=== PATIENT | male | born 1950 | race Caucasian/White ===

== ENCOUNTER 2017-01-03 10:18 | Inpatient (IN) | payer OTHER, MEDICARE ==
[~2017-01-03] VITALS: Ht 172.7 cm; Wt 82.0 kg
[~2017-01-03 10:18] MED LIST: ASPI81 PO; ATEN1TAB74 PO; CHLO25 PO; COMBAER INH; FOLI1 PO; GUAI100S6 PO; LISI40TA PO; MAGN400 PO; MEDR4PAK3 PO; NORC10TA2 PO; PROT40TA PO; THERM PO; THIA100T PO; Z.0.OXYGENDME NC; ZITH250T PO
[2017-01-03 10:24] VITALS: BP 106/62; PULSE 68; RESP 16; TEMP 98.1; O2SAT 99
[2017-01-03 10:41] VITALS: BP 95/49; PULSE 68; RESP 24; TEMP 98; O2SAT 99
[2017-01-03] MEDS ORDERED: SODIUM CHLOR 0.9% 1000 ML INJ 1,000 ML IV SCH ×2 (10:46)
[2017-01-03] MEDS ORDERED: SODIUM CHLORIDE 0.9% FLUSH 5 ML FLUSH IV FLUSH PRN ×2 (11:00)
[2017-01-03 11:08] VITALS: PULSE 71; RESP 24; O2SAT 97
--- NOTE | 2017-01-03 11:10 | PD ---
HPI Chief Complaint: Abnormal Results Time Seen by Provider: 10:39 Travel History International Travel<30 days: No Contact w/Intl Traveler<30days: No Traveled to known affect area: No History of Present Illness HPI The patient is a 66-year-old male who presents to the emergency department via private vehicle from the [place] for low sodium. The patient is a 40 history of nausea, vomiting, generalized weakness. The patient does have a history of chronic alcohol use, normally drinks 5 Budweisers per day, however, over the last several days his only been drinking one beer per day secondary to fullness in the abdomen. He does complain of generalized weakness with nausea and vomiting. He also notes decreased appetite. He denies any history of lung masses, but does have a history of low sodium in the past, however, states he has never been hospitalized for low sodium. He denies any significant swelling to lower extremities. He denies any chest pain or shortness of breath. Symptoms are moderate, there are no current alleviating or exacerbating factors. PFSH Past Medical History Arthritis: Yes Autoimmune Disease: No Depression: No Cancer: No Congestive Heart Failure: No COPD: Yes Coronary Artery Disease: No Diabetes: No Diminished Hearing: Yes Endocrine: No Genitourinary: No Hypertension: Yes Immune Disorder: No Implanted Vascular Access Dvce: Yes Musculoskeletal: No Neurologic: No Psychiatric: No Reproductive: No Respiratory: Yes (emphysema) Tetanus Vaccination: > 5 Years Influenza Vaccination: No Past Surgical History Abdominal Surgery: Yes (HERNIA REPAIR) Body Medical Devices: MESH FOR HERNIA REPAIR Other Surgery: Yes Social History Alcohol Use: Yes (6 PACK OF BEER PER DAY) Tobacco Use: Yes (1 PPD, STATED HE QUIT 4 DAYS AGO) Substance Use: No Allergies-Medications (Allergen,Severity, Reaction): Coded Allergies: No Known Allergies (Verified Adverse Reaction, Unknown, 01/03/17) Reported Meds & Prescriptions Reported Meds & Active Scripts Active Reported Aspirin 81 Mg Tab 81 Mg PO DAILY Tenormin (Atenolol) 50 Mg Tab 50 Mg PO DAILY Prinivil 40 mg (Lisinopril) 40 Mg Tab 40 Mg PO DAILY Combivent (Albuterol/Ipratropium) 14.7 Gm Aer 2 Puff INH Q6HPRN FOR WHEEZING Review of Systems Except as stated in HPI: all other systems reviewed are Neg General / Constitutional: No: Fever Cardiovascular: No: Chest Pain or Discomfort Respiratory: No: Shortness of Breath Gastrointestinal: Positive: Nausea, Vomiting, No: Abdominal Pain Genitourinary: No: Dysuria Musculoskeletal: Positive: Weakness, No: Edema Neurologic: No: Dizziness Physical Exam Narrative GENERAL: Awake, alert, pleasant 66-year-old male who appears his stated age and is in no acute respiratory distress. SKIN: Focused skin assessment warm/dry. HEAD: Atraumatic. Normocephalic. EYES: Pupils equal and round. No scleral icterus. No injection or drainage. ENT: No nasal bleeding or discharge. Mucous membranes pink and moist. NECK: Trachea midline. No JVD. CARDIOVASCULAR: Regular rate and rhythm. No murmur appreciated. RESPIRATORY: No accessory muscle use. Clear to auscultation. Breath sounds equal bilaterally. GASTROINTESTINAL: Abdomen soft, non-tender, nondistended. MUSCULOSKELETAL: No obvious deformities. No clubbing. No cyanosis. No edema. NEUROLOGICAL: Awake and alert. No obvious cranial nerve deficits. Motor grossly within normal limits. Normal speech. Nonfocal. PSYCHIATRIC: Appropriate mood and affect; insight and judgment normal. Data Data Last Documented VS Vital Signs Date Time Temp Pulse Resp B/P (MAP) Pulse Ox O2 Delivery O2 Flow Rate FiO2 01/03/17 11:08 71 24 97 Room Air 01/03/17 10:41 98.0 Orders Orders Electrocardiogram (01/03/17 10:46) Complete Blood Count With Diff (01/03/17 10:46) Comprehensive Metabolic Panel (01/03/17 10:46) Creatine Kinase (Cpk) (01/03/17 10:46) Thyroid Stimulating Hormone (01/03/17 10:46) Urinalysis - C+S If Indicated (01/03/17 10:46) Chest, Single Ap (01/03/17 10:46) Blood Glucose (01/03/17 10:46) Ecg Monitoring (01/03/17 10:46) Iv Access Insert/Monitor (01/03/17 10:46) Oximetry (01/03/17 10:46) Sodium Chloride 0.9% Flush (Ns Flush) (01/03/17 11:00) Sodium Chlor 0.9% 1000 Ml Inj (Ns 1000 M (01/03/17 10:46) Alcohol (Ethanol) (01/03/17 10:46) Ct Thorax/ Chest W Iv Contrast (01/03/17 ) Labs Laboratory Tests Test 01/03/17 11:08 01/03/17 11:10 01/03/17 11:41 White Blood Count 15.0 TH/MM3 Red Blood Count 4.52 MIL/MM3 Hemoglobin 15.4 GM/DL Hematocrit 42.9 % Mean Corpuscular Volume 94.8 FL Mean Corpuscular Hemoglobin 34.0 PG Mean Corpuscular Hemoglobin Concent 35.8 % Red Cell Distribution Width 15.5 % Platelet Count 386 TH/MM3 Mean Platelet Volume 7.1 FL Neutrophils (%) (Auto) 74.3 % Lymphocytes (%) (Auto) 9.9 % Monocytes (%) (Auto) 11.6 % Eosinophils (%) (Auto) 3.4 % Basophils (%) (Auto) 0.8 % Neutrophils # (Auto) 11.2 TH/MM3 Lymphocytes # (Auto) 1.5 TH/MM3 Monocytes # (Auto) 1.7 TH/MM3 Eosinophils # (Auto) 0.5 TH/MM3 Basophils # (Auto) 0.1 TH/MM3 CBC Comment DIFF FINAL Differential Comment Urine Color YELLOW Urine Turbidity CLEAR Urine pH 5.5 Urine Specific [place] 1.011 Urine Protein NEG mg/dL Urine Glucose (UA) NEG mg/dL Urine Ketones NEG mg/dL Urine Occult Blood NEG Urine Nitrite NEG Urine Bilirubin NEG Urine Urobilinogen LESS THAN 2.0 MG/DL Urine Leukocyte Esterase NEG Urine RBC 1 /hpf Urine WBC 2 /hpf Urine Hyaline Casts 11 /lpf Microscopic Urinalysis Comment CULT NOT INDICATED Blood Urea Nitrogen 13 MG/DL Creatinine 1.28 MG/DL Random Glucose 113 MG/DL Total Protein 6.3 GM/DL Albumin 2.7 GM/DL Calcium Level 8.6 MG/DL Alkaline Phosphatase 103 U/L Aspartate Amino Transf (AST/SGOT) 39 U/L Alanine Aminotransferase (ALT/SGPT) 23 U/L Total Bilirubin 0.5 MG/DL Sodium Level 122 MEQ/L Potassium Level 6.0 MEQ/L Chloride Level 89 MEQ/L Carbon Dioxide Level 24.3 MEQ/L Anion Gap 9 MEQ/L Estimat Glomerular Filtration Rate 56 ML/MIN Total Creatine Kinase 59 U/L Thyroid Stimulating Hormone 3rd Gen 2.120 uIU/ML Ethyl Alcohol Level LESS THAN 3 MG/DL MDM Medical Decision Making Medical Screen Exam Complete: Yes Emergency Medical Condition: Yes Medical Record Reviewed: Yes Interpretation(s) Laboratory Tests Test 01/03/17 11:08 01/03/17 11:10 01/03/17 11:41 White Blood Count 15.0 TH/MM3 Red Blood Count 4.52 MIL/MM3 Hemoglobin 15.4 GM/DL Hematocrit 42.9 % Mean Corpuscular Volume 94.8 FL Mean Corpuscular Hemoglobin 34.0 PG Mean Corpuscular Hemoglobin Concent 35.8 % Red Cell Distribution Width 15.5 % Platelet Count 386 TH/MM3 Mean Platelet Volume 7.1 FL Neutrophils (%) (Auto) 74.3 % Lymphocytes (%) (Auto) 9.9 % Monocytes (%) (Auto) 11.6 % Eosinophils (%) (Auto) 3.4 % Basophils (%) (Auto) 0.8 % Neutrophils # (Auto) 11.2 TH/MM3 Lymphocytes # (Auto) 1.5 TH/MM3 Monocytes # (Auto) 1.7 TH/MM3 Eosinophils # (Auto) 0.5 TH/MM3 Basophils # (Auto) 0.1 TH/MM3 CBC Comment DIFF FINAL Differential Comment Urine Color YELLOW Urine Turbidity CLEAR Urine pH 5.5 Urine Specific [place] 1.011 Urine Protein NEG mg/dL Urine Glucose (UA) NEG mg/dL Urine Ketones NEG mg/dL Urine Occult Blood NEG Urine Nitrite NEG Urine Bilirubin NEG Urine Urobilinogen LESS THAN 2.0 MG/DL Urine Leukocyte Esterase NEG Urine RBC 1 /hpf Urine WBC 2 /hpf Urine Hyaline Casts 11 /lpf Microscopic Urinalysis Comment CULT NOT INDICATED Blood Urea Nitrogen 13 MG/DL Creatinine 1.28 MG/DL Random Glucose 113 MG/DL Total Protein 6.3 GM/DL Albumin 2.7 GM/DL Calcium Level 8.6 MG/DL Alkaline Phosphatase 103 U/L Aspartate Amino Transf (AST/SGOT) 39 U/L Alanine Aminotransferase (ALT/SGPT) 23 U/L Total Bilirubin 0.5 MG/DL Sodium Level 122 MEQ/L Potassium Level 6.0 MEQ/L Chloride Level 89 MEQ/L Carbon Dioxide Level 24.3 MEQ/L Anion Gap 9 MEQ/L Estimat Glomerular Filtration Rate 56 ML/MIN Total Creatine Kinase 59 U/L Thyroid Stimulating Hormone 3rd Gen 2.120 uIU/ML Ethyl Alcohol Level LESS THAN 3 MG/DL Differential Diagnosis Differential diagnoses includes hyponatremia, chronic alcohol abuse, dehydration , small cell carcinoma, electrolyte abnormality, dehydration. Narrative Course IV was established, labs are drawn and sent, and the patient was placed on cardiac telemetry monitoring and continuous pulse oximetry monitoring. EKG was ordered and interpreted. Sodium level was sent to lab. The patient was administered 1 L of IV fluids. Chest x-ray reveals a right lung mass versus cavitary lesion, CT of the thorax with IV contrast was ordered. The sodium is low 122. Potassium is high 6.0, however, there is slight hemolysis. Chest x- ray reveals a right lung mass, unsure if this is a small cell carcinoma. The patient will be admitted to the medical service. The on-call medical team was paged for admission. Physician Communication Physician Communication The on-call medical service was paged for admission. Diagnosis Primary Impression: Hyponatremia Additional Impressions: Chest mass Hyperkalemia Condition: Stable Odell Luque MD Jan 03, 2017 11:10
[2017-01-03 11:18] LABS: AUTOMATED NEUTROPHIL # 11.2 TH/MM3 (1.8-7.7); BASOPHIL # 0.1 TH/MM3 (0-0.2); BASOPHIL % 0.8 % (0.0-2.0); EOSINOPHIL # 0.5 TH/MM3 (0-0.4); EOSINOPHIL % 3.4 % (0.0-4.0); HEMATOCRIT 42.9 % (39.0-51.0); HEMOGLOBIN 15.4 GM/DL (13.0-17.0); LYMPH % 9.9 % (9.0-44.0); LYMPHOCYTE # 1.5 TH/MM3 (1.0-4.8); MEAN CELL VOLUME 94.8 FL (80.0-100.0); MEAN CORPUSCULAR HGB CONC 35.8 % (32.0-36.0); MEAN PLATELET VOLUME 7.1 FL (7.0-11.0); MONO % 11.6 % (0.0-8.0); MONOCYTE # 1.7 TH/MM3 (0-0.9); NEUT % 74.3 % (16.0-70.0); PLATELET COUNT 386 TH/MM3 (150-450); RED BLOOD COUNT 4.52 MIL/MM3 (4.50-5.90); RED CELL DISTRIBUTION WIDTH 15.5 % (11.6-17.2)
[2017-01-03 11:43] LABS: BILIRUBIN, URINE NEG (NEG); BLOOD, URINE NEG (NEG); GLUCOSE,URINE NEG (NEG); HYALINE CAST, URINE 11 /lpf (RARE); KETONE, URINE NEG (NEG); NITRITE,URINE NEG (NEG); PH, URINE 5.5 (5.0-8.5); URINE COLOR YELLOW (YELLW/STRAW); URINE LEUKOCYTE ESTERASE NEG (NEG)
--- NOTE | 2017-01-03 11:49 | RADRPT ---
EXAM DATE/TIME: 01/03/2017 11:15 [facility] COMPARISON: CHEST SINGLE AP, October 30, 2014, 16:41. INDICATIONS : Vomiting. MEDICAL HISTORY : Emphysema. SURGICAL HISTORY : None. ENCOUNTER: Initial ACUITY: 1 day PAIN SCORE: 0/10 LOCATION: Bilateral chest FINDINGS: Masslike consolidation with some cavitation is present right upper lobe. Left lung is clear. The hea rt and pulmonary vascularity are normal. The portion of the bony skeleton visualized is unremarkable. CONCLUSION: Mass like consolidation right upper lobe. CT scan of the chest with contrast suggest ed. Forest Torres MD FACR on January 03, 2017 at 11:46 Board Certified Radiologist. This report was verified electronically.
[2017-01-03 12:47] LABS: ALBUMIN 2.7 GM/DL (3.4-5.0); ALKALINE PHOSPHATASE 103 U/L (45-117); ALT (GPT) 23 U/L (12-78); BICARBONATE 24.3 MEQ/L (21.0-32.0); BLOOD UREA NITROGEN 13 MG/DL (7-18); CALCIUM 8.6 MG/DL (8.5-10.1); CHLORIDE 89 MEQ/L (98-107); CREATININE 1.28 MG/DL (0.60-1.30); GLOMERULAR FILTRATION RATE 56 ML/MIN (>89); GLUCOSE,RANDOM 113 MG/DL (74-106); TOTAL BILIRUBIN ADULT 0.5 MG/DL (0.2-1.0); TOTAL PROTEIN 6.3 GM/DL (6.4-8.2)
[2017-01-03 12:48] LABS: AST (GOT) 39 U/L (15-37); SODIUM (NA) 122 MEQ/L (136-145)
[2017-01-03] MEDS ORDERED: IOHEXOL 350 MG/ML 10 ML VIAL (for RAD DIAG) IVCONTRAST ONE ×2 (13:15)
--- NOTE | 2017-01-03 13:26 | RADRPT ---
EXAM DATE/TIME: 01/03/2017 13:12 [facility] COMPARISON: CT BRAIN W/O CONTRAST, October 30, 2014, 18:13. CT THORAX W CONTRAST, October 30, 2014, 18:20. INDICATIONS : Abnormal chest xray. Evaluate for possible mass. Cavitating mass is present in the left upper lobe with direct extension into the mediastinum. Mass encases the pulmonary vein RADIATION DOSE: 5.56 CTDIvol (mGy) MEDICAL HISTORY : Hypertension. SURGICAL HISTORY : None. ENCOUNTER: Initial ACUITY: 1 day PAIN SCALE: 2/10 LOCATION: chest TECHNIQUE: Volumetric scanning of the chest was performed. Using automated exposure control and adjustment of t he mA and/or kV according to patient size, radiation dose was kept as low as reasonably achievable to obtain optimal diagnostic quality images. DICOM format image data is available electronically for review and comparison. Follow-up recommendations for detected pulmonary nodules are based at a minimum on nodule size and pa tient risk factors according to Fleischner Society Guidelines. FINDINGS: Cavitating mass is present in the left upper lobe with direct extension into the mediastinum. Mass e ncases the pulmonary vein. There is no evidence of central pulmonary emboli. Abnormal soft tissue i s present in the distal antrum adjacent to the right main bronchus. The left lung is clear. There is no pericardial effusion Moderate ascites is evident. CONCLUSION: 6 cm cavitating mass right upper lobe suspicious for primary carcinoma the lung. Moderate ascites. This can be biopsied or cutaneously. Forest Torres MD FACR on January 03, 2017 at 13:19 Board Certified Radiologist. This report was verified electronically.
[2017-01-03 14:54] VITALS: BP 121/62; PULSE 76; RESP 18; TEMP 96.6; O2SAT 100
[2017-01-03] MEDS ORDERED: BISACODYL 10 MG SUPP RECTAL PRN ×2 (15:30)
[2017-01-03] MEDS ORDERED: SENNOSIDES 8.6 MG TAB PO PRN ×2 (15:30)
[2017-01-03] MEDS ORDERED: LACTULOSE SYRUP 20 GM/30 ML CUP PO PRN ×2 (15:30)
[2017-01-03] MEDS ORDERED: MAGNESIUM HYDROXIDE SUSP 30 ML CUP PO PRN ×2 (15:30)
[2017-01-03] MEDS ORDERED: ONDANSETRON HCL 4 MG/2 ML VIAL IVP PRN ×2 (15:30)
[2017-01-03] MEDS ORDERED: NALOXONE HCL 0.4 MG/ML AMP IV PUSH PRN ×2 (15:30)
[2017-01-03] MEDS ORDERED: ZOLPIDEM TARTRATE 5 MG TAB PO PRN ×2 (15:30)
[2017-01-03] MEDS ORDERED: LISI40TA PO ×2 (16:17)
[2017-01-03] MEDS ORDERED: ASPI81CH CHEW ×2 (16:17)
[2017-01-03] MEDS ORDERED: IPRA17I INH ×2 (16:17)
[2017-01-03] MEDS ORDERED: ATEN50TA PO ×2 (16:17)
[2017-01-03] MEDS: HEPARIN SODIUM - SQ 10,000 UNITS/ML VIAL SQ SCH ×2 (18:05)
[2017-01-03] MEDS ORDERED: DEXTROSE 50% IN WATER 50 ML SYRINGE IV PUSH ONE (19:15)
[2017-01-03] MEDS ORDERED: CALCIUM CHLORIDE INJ 2 GM in SODIUM CHLORIDE 0.9% INJ 100 ML IV ONE ×4 (19:15)
[2017-01-03] MEDS ORDERED: INSULIN HUMAN REGULAR 1,000 UNITS/10 ML VIAL IV PUSH ONE ×2 (19:15)
[2017-01-03] MEDS ORDERED: LORazepam 2 MG TAB PO PRN ×2 (19:45)
[2017-01-03] MEDS ORDERED: LORazepam 2 MG/ML VIAL IV PUSH PRN ×8 (19:45)
[2017-01-03] MEDS ORDERED: LORazepam 1 MG TAB PO PRN ×2 (19:45)
[2017-01-03] MEDS ORDERED: FLUMAZENIL 0.5 MG/5 ML VIAL IV PUSH PRN ×2 (19:45)
--- NOTE | 2017-01-03 19:46 | HHI.HP ---
HPI Service [facility] Hospitalists Primary Care Physician [facility] Admission Diagnosis hyponatremia, hyperkalemia with hemolysis, right chest mass Diagnoses: Chief Complaint: vomiting, nausea Travel History International Travel<30 Days: No Contact w/Intl Traveler <30 Da: No Traveled to Known Affected Are: No Sepsis Criteria SIRS Criteria (2 or more): Heart rate over 90, WBC > 55729, < 4000 or > 10% bands Sepsis Criteria (SIRS+source): Infect source susp/known Severe Sepsis (+one): Organ Dysfunction History of Present Illness This is a 66-year-old male with past medical history of COPD/emphysema, hypertension and hyperlipidemia who presents to [facility] emergency department sent [place]. The patient states that he went to the [place] for a follow-up appointment and he was told to go to the emergency department at the hospital it was his sodium was very low. The patient initially told me that he felt healthy and that had no symptoms. However upon questioning he said that he had vomited in the past few days, he has not eaten anything in the past 3-4 days. He also states that he has been having more shortness of breath especially on accession and increased cough but without sputum production. Patient denies any chest pain., Hemoptysis, fevers, chills , denies dysuria, he also states that he had some diarrhea. Review of Systems As per history of present illness, other systems reviewed by me and negative Past Family Social History Past Medical History Hypertension, emphysema, hyperlipidemia. Past Surgical History Arthroscopic left knee surgery, right carpal tunnel syndrome surgery. Left inguinal hernia repair. Reported Medications Lisinopril 40 Mg Tab 40 Mg PO DAILY Atrovent HFA 12.9 GM Inh (Ipratropium [place]) 17 Mcg/Actuation Aer 2 Puff INH Q6HR PRN Atenolol 50 Mg Tab 50 Mg PO DAILY Aspirin 81 Mg Chew 81 Mg CHEW DAILY Allergies: Coded Allergies: No Known Allergies (Verified Allergy, Unknown, 01/03/17) Active Ordered Medications Current Medications Medications (Trade) Dose Ordered Sig/Leon Route Start Time Stop Time Status Last Admin (NS Flush) 2 ml UNSCH PRN IV FLUSH 01/03/17 11:00 (NS Flush) 2 ml UNSCH PRN IV FLUSH 01/03/17 15:30 (NS Flush) 2 ml BID IV FLUSH 01/03/17 21:00 (Zofran Inj) 4 mg Q6H PRN IVP 01/03/17 15:30 (Ambien) 5 mg HS PRN PO 01/03/17 15:30 (Heparin Inj) 5,000 units Q8H SQ 01/03/17 16:00 01/03/17 18:05 (Narcan Inj) 0.4 mg UNSCH PRN IV PUSH 01/03/17 15:30 (Cadence-Colace) 1 tab BID PO 01/03/17 21:00 (Milk Of Magnesia Liq) 30 ml Q12H PRN PO 01/03/17 15:30 (Senokot) 17.2 mg Q12H PRN PO 01/03/17 15:30 (Dulcolax Supp) 10 mg DAILY PRN RECTAL 01/03/17 15:30 (Lactulose Liq) 30 ml DAILY PRN PO 01/03/17 15:30 Social History Patient drinks alcohol, states 5-6 beers per day. The patient smokes half a pack per day and has done that for more than 40 years. The patient denies illicit drug use. The patient is and has 2 children. His son lives in [place] and he has a daughter that lives in [place], however he has not had communication with her for several years. Physical Exam Vital Signs Vital Signs Date Time Temp Pulse Resp B/P (MAP) Pulse Ox O2 Delivery O2 Flow Rate FiO2 01/03/17 15:01 01/03/17 14:54 96.6 76 18 121/62 (81) 100 01/03/17 11:08 71 24 97 Room Air 01/03/17 10:41 98.0 68 24 95/49 (64) 99 Room Air 01/03/17 10:33 18 01/03/17 10:24 98.1 68 16 106/62 (77) 99 Physical Exam GENERAL: This is a well-nourished, well-developed patient, in moderate respiratory distress. SKIN: No rashes, ecchymoses or lesions. Cool and dry. HEAD: Atraumatic. Normocephalic. No temporal or scalp tenderness. EYES: Pupils equal round and reactive. Extraocular motions intact. No scleral icterus. No injection or drainage. ENT: Nose without bleeding, purulent drainage or septal hematoma. Throat without erythema, tonsillar hypertrophy or exudate. Uvula midline. Airway patent. NECK: Trachea midline. No JVD or lymphadenopathy. Supple, nontender, no meningeal signs. CARDIOVASCULAR: Regular rate and rhythm without murmurs, gallops, or rubs. RESPIRATORY: Diffuse bilateral expiratory wheezing with decreased breath sounds bilaterally more noticeable in the expiration phase. GASTROINTESTINAL: Abdomen soft, non-tender, nondistended. No hepato-splenomegaly , or palpable masses. No guarding. MUSCULOSKELETAL: Extremities without clubbing, cyanosis, or edema. No joint tenderness, effusion, or edema noted. No calf tenderness. Negative Homans sign bilaterally. NEUROLOGICAL: Awake and alert. Cranial nerves II through XII intact. Motor and sensory grossly within normal limits. Five out of 5 muscle strength in all muscle groups. Normal speech. Laboratory Laboratory Tests Test 01/03/17 11:08 01/03/17 11:10 01/03/17 11:41 White Blood Count 15.0 Red Blood Count 4.52 Hemoglobin 15.4 Hematocrit 42.9 Mean Corpuscular Volume 94.8 Mean Corpuscular Hemoglobin 34.0 Mean Corpuscular Hemoglobin Concent 35.8 Red Cell Distribution Width 15.5 Platelet Count 386 Mean Platelet Volume 7.1 Neutrophils (%) (Auto) 74.3 Lymphocytes (%) (Auto) 9.9 Monocytes (%) (Auto) 11.6 Eosinophils (%) (Auto) 3.4 Basophils (%) (Auto) 0.8 Neutrophils # (Auto) 11.2 Lymphocytes # (Auto) 1.5 Monocytes # (Auto) 1.7 Eosinophils # (Auto) 0.5 Basophils # (Auto) 0.1 CBC Comment DIFF FINAL Differential Comment Urine Color YELLOW Urine Turbidity CLEAR Urine pH 5.5 Urine Specific [place] 1.011 Urine Protein NEG Urine Glucose (UA) NEG Urine Ketones NEG Urine Occult Blood NEG Urine Nitrite NEG Urine Bilirubin NEG Urine Urobilinogen LESS THAN 2.0 Urine Leukocyte Esterase NEG Urine RBC 1 Urine WBC 2 Urine Hyaline Casts 11 Microscopic Urinalysis Comment CULT NOT INDICATED Blood Urea Nitrogen 13 Creatinine 1.28 Random Glucose 113 Total Protein 6.3 Albumin 2.7 Calcium Level 8.6 Alkaline Phosphatase 103 Aspartate Amino Transf (AST/SGOT) 39 Alanine Aminotransferase (ALT/SGPT) 23 Total Bilirubin 0.5 Sodium Level 122 Potassium Level 6.0 Chloride Level 89 Carbon Dioxide Level 24.3 Anion Gap 9 Estimat Glomerular Filtration Rate 56 Total Creatine Kinase 59 Thyroid Stimulating Hormone 3rd Gen 2.120 Ethyl Alcohol Level LESS THAN 3 Result Diagram: 01/03/17 1108 01/03/17 1141 Imaging Last Impressions Chest X-Ray 01/03/17 1046 Signed Impressions: Service Date/Time: Tuesday, January 03, 2017 11:15 - CONCLUSION: Mass like consolidation right upper lobe. CT scan of the chest with contrast suggested. Forest Torres MD FACR Chest CT 01/03/17 0000 Signed Impressions: Service Date/Time: Tuesday, January 03, 2017 13:12 - CONCLUSION: 6 cm cavitating mass right upper lobe suspicious for primary carcinoma the lung. Moderate ascites. This can be biopsied or cutaneously. Forest Torres MD FACR Caprini VTE Risk Assessment Caprini VTE Risk Assessment: Mod/High Risk (score >= 2) Caprini Risk Assessment Model Point Value = 1 Point Value = 2 Point Value = 3 Point Value = 5 Age 41-60 Minor surgery BMI > 25 kg/m2 Swollen legs Varicose veins or History of unexplained or recurrent spontaneous Oral contraceptives or hormone replacement Sepsis (< 1 month) Serious lung disease, including pneumonia (< 1 month) Abnormal pulmonary function Acute myocardial infarction Congestive heart failure (< 1 month) History of inflammatory bowel disease Medical patient at bed rest Age 61-74 Arthroscopic surgery Major open surgery (> 45 min) Laparoscopic surgery (> 45 min) Malignancy Confined to bed (> 72 hours) Immobilizing plaster cast Central venous access Age >= 75 History of VTE Family history of VTE Factor V Leiden Prothrombin [id number] Lupus anticoagulant Anticardiolipin antibodies Elevated serum homocysteine Heparin-induced thrombocytopenia Other congenital or acquired thrombophilia Stroke (< 1 month) Elective arthroplasty Hip, pelvis, or leg fracture Acute spinal cord injury (< 1 month) Prophylaxis Regimen Total Risk Factor Score Risk Level Prophylaxis Regimen 0-1 Low Early ambulation 2 Moderate Order ONE of the following: *Sequential Compression Device (SCD) *Heparin 5000 units SQ BID 3-4 Higher Order ONE of the following medications: *Heparin 5000 units SQ TID *Enoxaparin/Lovenox 40 mg SQ daily (WT < 150 kg, CrCl > 30 mL/min) *Enoxaparin/Lovenox 30 mg SQ daily (WT < 150 kg, CrCl > 10-29 mL/min) *Enoxaparin/Lovenox 30 mg SQ BID (WT < 150 kg, CrCl > 30 mL/min) AND/OR *Sequential Compression Device (SCD) 5 or more Highest Order ONE of the following medications: *Heparin 5000 units SQ TID (Preferred with Epidurals) *Enoxaparin/Lovenox 40 mg SQ daily (WT < 150 kg, CrCl > 30 mL/min) *Enoxaparin/Lovenox 30 mg SQ daily (WT < 150 kg, CrCl > 10-29 mL/min) *Enoxaparin/Lovenox 30 mg SQ BID (WT < 150 kg, CrCl > 30 mL/min) AND *Sequential Compression Device (SCD) Assessment and Plan Problem List: (1) Sepsis ICD Code: A41.9 - Sepsis, unspecified organism Plan: Meets severe sepsis criteria - Present on admission. Patient presents with leukocytosis of 15 K, heart rate more than 90, increased BUN/creatinine, and a chest x-ray and CT scan of the chest which shows lung mass. Both imaging reviewed by me. The CT scan of the chest shows possible infiltrate which could be a postobstructive pneumonia. Admit the patient to the medical floor, I will start the patient on IV fluids given that he has not eaten in the past 4 days and that he has been vomiting and also has been having reported diarrhea. Check blood cultures, check lactic acid I will start the patient on IV Levaquin and Flagyl. (2) Lung mass ICD Code: R91.8 - Other nonspecific abnormal finding of lung field Plan: CT scan of the chest shows 6 cm cavitating mass in the right upper lobe suspicious for primary carcinoma of the lung. I will consult oncology and pulmonology. I will also order a CT abdomen and pelvis to look for metastatic disease and to help with staging area I will also order a CT-guided biopsy. (3) COPD exacerbation ICD Code: J44.1 - Chronic obstructive pulmonary disease with (acute) exacerbation Plan: I will start the patient IV steroids, IV antibiotics as above. DuoNeb treatments. Consult pulmonology. (4) Postobstructive pneumonia ICD Code: J18.9 - Pneumonia, unspecified organism Status: Acute Plan: Started on IV Levaquin and IV Flagyl. (5) Hyponatremia ICD Code: E87.1 - Hypo-osmolality and hyponatremia Status: Acute Plan: Acute on chronic hyponatremia. Suspect hypovolemic hyponatremia given that the patient has been having nausea and vomiting for several days with decreased oral intake. I will start the patient on IV normal saline and check BMP every 6 hours. If sodium is start to trend down then possibly patient could have SIADH secondary to lung mass and fluids would probably it to be discontinued at this point and the patient started on fluid restriction. (6) Hyperkalemia ICD Code: E87.5 - Hyperkalemia Plan: Potassium 6.0 on admission. Amylase sample as per lab report. (7) ROCHELLE (acute kidney injury) ICD Code: N17.9 - Acute kidney failure, unspecified Status: Acute Plan: Upon review of records the patient has a baseline creatinine of 0.7. Creatinine on admission is 1.28 with a GFR of 56. I suspect her renal azotemia from dehydration, start IV fluids and monitor BUN/ creatinine, avoid nephrotoxins. (8) Alcohol abuse ICD Code: F10.10 - Alcohol abuse, uncomplicated Status: Chronic Plan: The patient is at risk for alcohol withdrawal. I will place in a CIWA protocol. (9) Tobacco abuse ICD Code: Z72.0 - Tobacco use Status: Chronic Plan: Advised smoking cessation. Will offer nicotine patch. (10) HTN (hypertension) ICD Code: I10 - Essential (primary) hypertension Status: Chronic Plan: Patient had an episode of hypotension. I will hold home antihypertensive medications and the blood pressure is more stable. Assessment and Plan GI prophylaxis: PPI. DVT prophylaxis: SCDs, heparin subcutaneously. Discussed Condition With Patient, he did physician, RN. Physician Certification 2 Midnight Certification Type: Admission for Inpatient Services Order for Inpatient Services The services are ordered in accordance with Medicare regulations or non- Medicare payer requirements, as applicable. In the case of services not specified as inpatient-only, they are appropriately provided as inpatient services in accordance with the 2-midnight benchmark. Estimated LOS (days): 3 days is the estimated time the patient will need to remain in the hospital, assuming treatment plan goals are met and no additional complications. Post-Hospital Plan: Home Problem Qualifiers (1) Sepsis: Qualified Codes: A41.9 - Sepsis, unspecified organism (2) HTN (hypertension): Qualified Codes: I10 - Essential (primary) hypertension Tyler Muhammad MD Jan 03, 2017 19:46
[2017-01-03] MEDS ORDERED: RESP: ALBUTEROL 2.5 MG/IPRATROPIUM 0.5 MG NEB (PRN) NEB ×2 (20:00)
[2017-01-03] MEDS: PIPERACIL-TAZO 4.5 GM PREMIX 100 ML IV SCH ×2 (20:00)
[2017-01-03] MEDS: DIATRIZOATE MEGLUM/DIATRIZOATE SOD 9 ML CUP PO ONE ×2 (20:03)
[2017-01-03] MEDS: SODIUM CHLOR 0.9% 1000 ML INJ 1,000 ML IV SCH ×2 (20:11)
[2017-01-03 20:36] VITALS: BP 144/65; PULSE 82; RESP 19; TEMP 96.6; O2SAT 97
[2017-01-03] MEDS: methylPREDNISolone SOD SUCC 40 MG/1 ML VIAL IV PUSH SCH ×2 (20:49)
[2017-01-03] MEDS: SODIUM CHLORIDE 0.9% FLUSH 10 ML FLUSH IV FLUSH SCH ×2 (21:00)
[2017-01-03] MEDS: DOCUSATE SODIUM 50 MG/SENNA 8.6 MG TAB PO SCH ×2 (21:00)
[2017-01-03] MEDS: RESP: ALBUTEROL 2.5 MG/IPRATROPIUM 0.5 MG NEB (SCH) NEB ×2 (21:19)
[2017-01-03 21:20] VITALS: O2SAT 98
[2017-01-03 21:27] LABS: CALCIUM 8.6 MG/DL (8.5-10.1); CREATININE 1.02 MG/DL (0.60-1.30)
[2017-01-04] VITALS (8 sets, daily range): BP systolic 121–149; BP diastolic 59–80; PULSE 78–88; RESP 16–19; TEMP 95.9–98.8; O2SAT 96–100
[2017-01-04] MEDS: HEPARIN SODIUM - SQ 10,000 UNITS/ML VIAL SQ SCH ×8 (00:13→23:21)
[2017-01-04 03:08] LABS: BICARBONATE 19.1 MEQ/L (21.0-32.0); CREATININE 0.91 MG/DL (0.60-1.30)
[2017-01-04] MEDS: PIPERACIL-TAZO 4.5 GM PREMIX 100 ML IV SCH ×6 (04:00→21:25)
[2017-01-04] MEDS: methylPREDNISolone SOD SUCC 40 MG/1 ML VIAL IV PUSH SCH ×10 (06:51→23:21)
[2017-01-04] MEDS: SODIUM CHLOR 0.9% 1000 ML INJ 1,000 ML IV SCH ×6 (06:52→23:22)
[2017-01-04 07:28] LABS: AUTOMATED NEUTROPHIL # 7.6 TH/MM3 (1.8-7.7); BASOPHIL % 0.2 % (0.0-2.0); EOSINOPHIL % 0.3 % (0.0-4.0); HEMATOCRIT 41.3 % (39.0-51.0); HEMOGLOBIN 14.2 GM/DL (13.0-17.0); LYMPH % 7.6 % (9.0-44.0); LYMPHOCYTE # 0.6 TH/MM3 (1.0-4.8); MEAN CELL VOLUME 95.5 FL (80.0-100.0); MEAN CORPUSCULAR HEMOGLOBIN 32.9 PG (27.0-34.0); MEAN CORPUSCULAR HGB CONC 34.5 % (32.0-36.0); MEAN PLATELET VOLUME 7.2 FL (7.0-11.0); MONO % 3.2 % (0.0-8.0); MONOCYTE # 0.3 TH/MM3 (0-0.9); NEUT % 88.7 % (16.0-70.0); PLATELET COUNT 270 TH/MM3 (150-450); RED BLOOD COUNT 4.32 MIL/MM3 (4.50-5.90); RED CELL DISTRIBUTION WIDTH 15.4 % (11.6-17.2); WHITE BLOOD COUNT 8.6 TH/MM3 (4.0-11.0)
[2017-01-04 07:52] LABS: ALT (GPT) 20 U/L (12-78)
[2017-01-04 07:54] LABS: ALKALINE PHOSPHATASE 91 U/L (45-117); TOTAL BILIRUBIN ADULT 0.4 MG/DL (0.2-1.0); TOTAL PROTEIN 5.9 GM/DL (6.4-8.2)
[2017-01-04 08:02] LABS: ALBUMIN 2.6 GM/DL (3.4-5.0); AST (GOT) 25 U/L (15-37); BICARBONATE 18.6 MEQ/L (21.0-32.0); BLOOD UREA NITROGEN 13 MG/DL (7-18); CALCIUM 8.3 MG/DL (8.5-10.1); CHLORIDE 95 MEQ/L (98-107); CREATININE 0.93 MG/DL (0.60-1.30); GLOMERULAR FILTRATION RATE 81 ML/MIN (>89); GLUCOSE,RANDOM 151 MG/DL (74-106); SODIUM (NA) 125 MEQ/L (136-145)
[2017-01-04] MEDS: RESP: ALBUTEROL 2.5 MG/IPRATROPIUM 0.5 MG NEB (SCH) NEB ×6 (08:26→20:43)
[2017-01-04] MEDS: DOCUSATE SODIUM 50 MG/SENNA 8.6 MG TAB PO SCH ×4 (09:17→21:00)
[2017-01-04] MEDS: SODIUM CHLORIDE 0.9% FLUSH 10 ML FLUSH IV FLUSH SCH ×4 (09:17→21:24)
[2017-01-04] MEDS: DIATRIZOATE MEGLUM/DIATRIZOATE SOD 9 ML CUP PO ONE ×2 (11:00)
[2017-01-04] MEDS ORDERED: DIATRIZOATE MEGLUM/DIATRIZOATE SOD 9 ML CUP PO ONE ×2 (11:45)
[2017-01-04] MEDS ORDERED: TEMAZEPAM 15 MG CAP PO PRN ×2 (11:45)
--- NOTE | 2017-01-04 11:52 | HHI.PR ---
Subjective Remarks Patient seen and examined this morning. Temperature 95.9, pulse 78, respiratory rate 19, blood pressure 149/65, pulse ox 99 on 2 L nasal cannula. This morning patient reports that he is feeling fairly good and has no major complaints this morning. He is in the process of drinking his oral contrast so that he could have his CT abdomen performed. The CT of the chest revealed a mass which there is plan to biopsy for Friday. He denies any nausea or vomiting today. He does report having to go to the bathroom several times throughout the night. Objective Vitals Vital Signs Date Time Temp Pulse Resp B/P (MAP) Pulse Ox O2 Delivery O2 Flow Rate FiO2 01/04/17 08:29 97 21 01/04/17 08:00 95.9 78 19 149/65 (93) 99 01/04/17 04:25 97.4 80 19 121/62 (81) 98 01/04/17 00:19 97.4 79 19 127/65 (85) 96 01/03/17 21:20 98 Nasal Cannula 2.00 01/03/17 20:36 96.6 82 19 144/65 (91) 97 01/03/17 15:01 01/03/17 14:54 96.6 76 18 121/62 (81) 100 I/O 01/03/17 01/03/17 01/03/17 01/04/17 01/04/17 01/04/17 07:00 15:00 23:00 07:00 15:00 23:00 Intake Total 240 ml 480 ml Balance 240 ml 480 ml Intake Oral 240 ml 480 ml # Voids 2 6 # Bowel Movements 1 6 Result Diagram: 01/04/17 0620 01/04/17 0620 Imaging Last Impressions Chest X-Ray 01/03/17 1046 Signed Impressions: Service Date/Time: Tuesday, January 03, 2017 11:15 - CONCLUSION: Mass like consolidation right upper lobe. CT scan of the chest with contrast suggested. Forest Torres MD FACR Chest CT 01/03/17 0000 Signed Impressions: Service Date/Time: Tuesday, January 03, 2017 13:12 - CONCLUSION: 6 cm cavitating mass right upper lobe suspicious for primary carcinoma the lung. Moderate ascites. This can be biopsied or cutaneously. Forest Torres MD FACR Objective Remarks GEN: Well-developed, well-nourished patient. No acute distress. CV: Regular rate and rhythm without obvious murmurs LUNGS: Clear to auscultation bilaterally. Normal respiratory effort. No wheezes , rales, rhonchi. GI: Soft, nontender, nondistended. No palpable masses. Bowel sounds WNL. EXT: No edema. NEURO/PSYCH: Afocal. Awake, alert, and oriented x3. Appropriate insight and judgment. Medications and IVs Current Medications Medications (Trade) Dose Ordered Sig/Leon Route Start Time Stop Time Status Last Admin (NS Flush) 2 ml UNSCH PRN IV FLUSH 01/03/17 11:00 (NS Flush) 2 ml UNSCH PRN IV FLUSH 01/03/17 15:30 (NS Flush) 2 ml BID IV FLUSH 01/03/17 21:00 (Zofran Inj) 4 mg Q6H PRN IVP 01/03/17 15:30 (Ambien) 5 mg HS PRN PO 01/03/17 15:30 (Heparin Inj) 5,000 units Q8H SQ 01/03/17 16:00 01/04/17 09:17 (Narcan Inj) 0.4 mg UNSCH PRN IV PUSH 01/03/17 15:30 (Cadence-Colace) 1 tab BID PO 01/03/17 21:00 (Milk Of Magnesia Liq) 30 ml Q12H PRN PO 01/03/17 15:30 (Senokot) 17.2 mg Q12H PRN PO 01/03/17 15:30 (Dulcolax Supp) 10 mg DAILY PRN RECTAL 01/03/17 15:30 (Lactulose Liq) 30 ml DAILY PRN PO 01/03/17 15:30 Sodium Chloride 1,000 ml @ 100 mls/hr Q10H IV 01/03/17 19:15 01/04/17 06:52 (Romazicon Inj) 0.2 mg Q1M PRN IV PUSH 01/03/17 19:45 (Ativan) 1 mg Q4H PRN PO 01/03/17 19:45 (Ativan Inj) 1 mg Q4H PRN IV PUSH 01/03/17 19:45 (Ativan) 2 mg Q2H PRN PO 01/03/17 19:45 (Ativan Inj) 2 mg Q2H PRN IV PUSH 01/03/17 19:45 (Ativan Inj) 2 mg Q1H PRN IV PUSH 01/03/17 19:45 (Ativan Inj) 2 mg Q15M PRN IV PUSH 01/03/17 19:45 Piperacillin Sod/ Tazobactam Sod 100 ml @ 200 mls/hr Q8H IV 01/03/17 20:00 01/04/17 11:33 (SoluMEDROL INJ) 40 mg Q6HR IV PUSH 01/03/17 20:00 01/04/17 06:51 (Duoneb Neb) 1 ampule Q6HR WHILE AWAKE NEB NEB 01/03/17 20:00 01/04/17 08:26 (Duoneb Neb) 1 ampule Q2HR NEB PRN NEB 01/03/17 20:00 ( Gastroview Liq) 18 ml ONCE ONCE PO 01/04/17 11:45 01/04/17 11:46 01/04/17 11:32 A/P Problem List: (1) Sepsis ICD Code: A41.9 - Sepsis, unspecified organism Plan: Meets severe sepsis criteria - Present on admission. Patient presents with leukocytosis of 15 K, heart rate more than 90, increased BUN/creatinine, and a chest x-ray and CT scan of the chest which shows lung mass. * CT scan of the chest shows possible infiltrate likely due to postobstructive pneumonia * Continue IV Levaquin and Flagyl * Blood cultures pending: No growth to date 1 * Lactic acid 1.5 * Patient reported multiple bouts of diarrhea overnight * NS at maintenance (2) Lung mass ICD Code: R91.8 - Other nonspecific abnormal finding of lung field Plan: CT scan of the chest shows 6 cm cavitating mass in the right upper lobe suspicious for primary carcinoma of the lung. * Consulted oncology and pulmonology, recommendations appreciated * CT biopsy planned for Friday01/06/17 * CT abdomen pending to screen for metastatic disease (3) COPD exacerbation ICD Code: J44.1 - Chronic obstructive pulmonary disease with (acute) exacerbation Plan: Patient possible COPD exacerbation versus pneumonia * IV antibiotics as above * DuoNeb treatments * Solu-Medrol IV 40 mg every 6 hours will transition to by mouth in the a.m. * Pulmonology consulted, recommendations appreciated (4) Postobstructive pneumonia ICD Code: J18.9 - Pneumonia, unspecified organism Status: Acute Plan: Started on IV Levaquin and IV Flagyl. (5) Hyponatremia ICD Code: E87.1 - Hypo-osmolality and hyponatremia Status: Acute Plan: Acute on chronic hyponatremia. Suspect hypovolemic hyponatremia given that the patient has been having nausea and vomiting for several days with decreased oral intake. I will start the patient on IV normal saline and check BMP every 6 hours. Patient's sodium is still low at 125, has increased some from admission. We'll continue to monitor. Concern for possible SIADH due to lung mass (6) Hyperkalemia ICD Code: E87.5 - Hyperkalemia Status: Resolved Plan: Resolved current potassium level is 4.5 (7) ROCHELLE (acute kidney injury) ICD Code: N17.9 - Acute kidney failure, unspecified Status: Acute Plan: Improving current creatinine is 0.93 IV hydration as above (8) Alcohol abuse ICD Code: F10.10 - Alcohol abuse, uncomplicated Status: Chronic Plan: The patient is at risk for alcohol withdrawal. * Placed on CIWA protocol (9) Tobacco abuse ICD Code: Z72.0 - Tobacco use Status: Chronic Plan: Advised smoking cessation. * Nicotine patch (10) HTN (hypertension) ICD Code: I10 - Essential (primary) hypertension Status: Chronic Plan: Patient had an episode of hypotension. I will hold home antihypertensive medications and the blood pressure is more stable. DVT prophylaxis with heparin Discharge Planning Pending results of biopsy and pulmonology/oncology recommendations Problem Qualifiers (1) Sepsis: Qualified Codes: A41.9 - Sepsis, unspecified organism (2) HTN (hypertension): Qualified Codes: I10 - Essential (primary) hypertension Nando Garcia MD, R3 Jan 04, 2017 11:52
[2017-01-04] MEDS: SODIUM CHLORIDE 0.9% FLUSH 10 ML FLUSH IV FLUSH PRN ×4 (12:25→18:15)
--- NOTE | 2017-01-04 17:15 | MB ---
cc: SHARLASHARLA DATE OF CONSULTATION 01/04/17 REASON FOR CONSULTATION COPD, lung mass. HISTORY OF PRESENT ILLNESS The patient is a 66-year-old male followed at the [facility] who was seen at the clinic with a very low-sodium, referred to [facility] for hospitalization. The patient has been having nausea and vomiting for several days prior to his hospitalization. He is chronically short of breath. CT scan of the chest revealed a 6 cm mass cavitary in the right upper lung. He denies history of fever, chills, hemoptysis, no TB or previous industrial exposure. PAST MEDICAL HISTORY 1. COPD, 2. Hypertension, 3. Hyperlipidemia, 4. Previous arthroscopic knee surgery, 5. Carpal tunnel surgery, 6. Left inguinal hernia repair MEDICATIONS At home include 1. Lisinopril, 2. Atrovent. 3. Atenolol. 4. Aspirin. ALLERGIES None known to medication FAMILY HISTORY Noncontributory. REVIEW OF SYSTEMS 12-point review of systems as per HPI and past history otherwise negative. SOCIAL HISTORY The patient drinks five to six beers a day, has a 40 pack-year smoking history up until time of admission, does not use drugs. PHYSICAL EXAMINATION VITAL SIGNS: on exam temperature 98, pulse 74, respirations 20, blood pressure 120/60, O2 sat 97% room air. HEENT: Exam unremarkable. Eyes without icterus. NECK: Without adenopathy or thyroid enlargement. CHEST: Few scattered rhonchi right upper chest. CARDIAC: PMI distant. S1-S2 audible. No murmur or rub. ABDOMEN: Lax, bowel sounds audible. EXTREMITIES: No clubbing, cyanosis or edema. LABORATORY DATA White count 15,000, hemoglobin 15, hematocrit 42. Sodium 122, potassium 6.0, hemoglobin 13, hematocrit 1.28. IMAGING STUDIES CT scan of the chest 6 cm cavitary mass right upper lung. Moderate ascites is present as well. IMPRESSION 1. Abdominal discomfort and vomiting, etiology unclear 2. Right upper lobe lung mass needs tissue diagnosis. 3. COPD. 4. Severe hyponatremia. PLAN The patient's hyponatremia is being addressed and at present it may very well be related to his vomiting or underlying SIADH related to the lung mass which is suspicious for malignancy. Bronchodilator therapy for underlying COPD has been given as well as antibiotic therapy for possible pneumonia. When stable, biopsy of the lung mass will be appropriate either via bronchoscopy or needle aspiration. We will follow his course along with you and depending on his progress would proceed further. MD ADRYAN Pink/ /4:20 PM /4:59 PM
[2017-01-04] MEDS ORDERED: IOHEXOL 350 MG/ML 10 ML VIAL (for RAD DIAG) IVCONTRAST ONE ×2 (19:29)
--- NOTE | 2017-01-04 19:34 | MB ---
cc: GRACIE OSBORN MD DATE OF CONSULTATION 01/04/17 DATE OF 1950 CHIEF COMPLAINT Suspicious lung mass. HISTORY OF PRESENT ILLNESS Mr. Craig is a 66-year-old gentleman with a history of hypertension, COPD, hyperlipidemia who receives all of his care through the [facility]. He presented to [facility] emergency department at the request of his primary care doctor from the [place] who reports that his sodium checked on routine labs was very low. The patient reports that he has had some nausea, vomiting, decreased appetite and shortness of breath in the days leading up to admission. 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 While he has been here, he had a CT scan of his chest which revealed a 6 cm cavitating mass in the right upper lobe which is suspicious for a primary carcinoma of the lung. He has moderate ascites. The cavitating mass is present in the right upper lobe with direct extension into the mediastinum. The mass encases the pulmonary main. There is no evidence of central pulmonary emboli. Abnormal soft tissue is present in the distal antrum adjacent to the right main bronchus. The left lung is clear. There is no pericardial effusion and moderate ascites is present. Laboratory studies revealed a white blood cell count of 8.6, a hemoglobin of 14.2, platelet count of 270,000 with a normal differential. Chemistry studies reveal a sodium of 125, potassium 4.5, chloride of 95, bicarb of 18.6, creatinine 0.93, EGFR 81, glucose of 151, calcium 8.3, total bili of 0.4, AST 25, ALT 20, alk phos is 91, total protein 5.9 and albumin is 2.6. Sodium from admission was 122, potassium from the admission was six. PAST MEDICAL HISTORY 1. COPD 2. Hypertension 3. Hyperlipidemia. PAST SURGICAL HISTORY Left inguinal hernia repair. SOCIAL HISTORY The patient lives in [place] with his girlfriend. He has family up [place]. He smokes, consumes alcohol and denies illegal drug use. He is a disabled . He was previously in the [employer]. ALLERGIES No known drug allergies. FAMILY HISTORY He reports a family history of malignancy in his mother, father and brother. REVIEW OF SYSTEMS 12 point review of systems conducted GENERAL: The patient feels fatigued GI: The patient has nausea, vomiting and decreased appetite. RESPIRATORY: Shortness of breath. All other review of systems negative. PHYSICAL EXAMINATION GENERAL: Elderly man in no distress. EYES: Pupils equal, round and reactive. Sclerae without icterus. ENT: Nasal cannula in place. NECK: Supple with no palpable lymphadenopathy. CHEST: Clear to auscultation bilaterally. CARDIAC: Regular rate and rhythm with no murmurs. ABDOMEN: Soft, nontender, nondistended with bowel sounds present. EXTREMITIES: No edema. NEUROLOGIC: Nonfocal. PSYCHIATRIC: Appropriate mood and affect. ASSESSMENT/PLAN 1. Right upper lobe lung mass highly suspicious for malignancy. Pulmonary team has been consulted and once other conditions stabilize, we will plan for procedure to obtain tissue diagnosis. 2. Hyponatremia, highly suspicious for SIADH related to underlying lung malignancy. We will continue to follow workup. We will continue to follow along. We will await the results of biopsy. MD CASEY Lange/ /5:59 PM /7:08 PM SALTY
--- NOTE | 2017-01-04 19:34 | MB ---
cc: GRACIE OSBORN MD DATE OF CONSULTATION 01/04/17 DATE OF 1950 CHIEF COMPLAINT Suspicious lung mass. HISTORY OF PRESENT ILLNESS Mr. Craig is a 66-year-old gentleman with a history of hypertension, COPD, hyperlipidemia who receives all of his care through the [place] [facility]. He presented to [facility] emergency department at the request of his primary care doctor from the [place] who reports that his sodium checked on routine labs was very low. The patient reports that he has had some nausea, vomiting, decreased appetite and shortness of breath in the days leading up to admission. 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 While he has been here, he had a CT scan of his chest which revealed a 6 cm cavitating mass in the right upper lobe which is suspicious for a primary carcinoma of the lung. He has moderate ascites. The cavitating mass is present in the right upper lobe with direct extension into the mediastinum. The mass encases the pulmonary main. There is no evidence of central pulmonary emboli. Abnormal soft tissue is present in the distal antrum adjacent to the right main bronchus. The left lung is clear. There is no pericardial effusion and moderate ascites is present. Laboratory studies revealed a white blood cell count of 8.6, a hemoglobin of 14.2, platelet count of 270,000 with a normal differential. Chemistry studies reveal a sodium of 125, potassium 4.5, chloride of 95, bicarb of 18.6, creatinine 0.93, EGFR 81, glucose of 151, calcium 8.3, total bili of 0.4, AST 25, ALT 20, alk phos is 91, total protein 5.9 and albumin is 2.6. Sodium from admission was 122, potassium from the admission was six. PAST MEDICAL HISTORY 1. COPD 2. Hypertension 3. Hyperlipidemia. PAST SURGICAL HISTORY Left inguinal hernia repair. SOCIAL HISTORY The patient lives in [place] with his girlfriend. He has family up [place]. He smokes, consumes alcohol and denies illegal drug use. He is a disabled . He was previously in the [employer]. ALLERGIES No known drug allergies. FAMILY HISTORY He reports a family history of malignancy in his mother, father and brother. REVIEW OF SYSTEMS 12 point review of systems conducted GENERAL: The patient feels fatigued GI: The patient has nausea, vomiting and decreased appetite. RESPIRATORY: Shortness of breath. All other review of systems negative. PHYSICAL EXAMINATION GENERAL: Elderly man in no distress. EYES: Pupils equal, round and reactive. Sclerae without icterus. ENT: Nasal cannula in place. NECK: Supple with no palpable lymphadenopathy. CHEST: Clear to auscultation bilaterally. CARDIAC: Regular rate and rhythm with no murmurs. ABDOMEN: Soft, nontender, nondistended with bowel sounds present. EXTREMITIES: No edema. NEUROLOGIC: Nonfocal. PSYCHIATRIC: Appropriate mood and affect. ASSESSMENT/PLAN 1. Right upper lobe lung mass highly suspicious for malignancy. Pulmonary team has been consulted and once other conditions stabilize, we will plan for procedure to obtain tissue diagnosis. 2. Hyponatremia, highly suspicious for SIADH related to underlying lung malignancy. We will continue to follow workup. We will continue to follow along. We will await the results of biopsy. MD CASEY Lange/ /5:59 PM /7:08 PM SALTY
--- NOTE | 2017-01-04 19:34 | MB ---
cc: GRACIE OSBORN MD DATE OF CONSULTATION 01/04/17 DATE OF 1950 CHIEF COMPLAINT Suspicious lung mass. HISTORY OF PRESENT ILLNESS Mr. Craig is a 66-year-old gentleman with a history of hypertension, COPD, hyperlipidemia who receives all of his care through the [place] [facility]. He presented to [facility] emergency department at the request of his primary care doctor from the [place] who reports that his sodium checked on routine labs was very low. The patient reports that he has had some nausea, vomiting, decreased appetite and shortness of breath in the days leading up to admission. 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 While he has been here, he had a CT scan of his chest which revealed a 6 cm cavitating mass in the right upper lobe which is suspicious for a primary carcinoma of the lung. He has moderate ascites. The cavitating mass is present in the right upper lobe with direct extension into the mediastinum. The mass encases the pulmonary main. There is no evidence of central pulmonary emboli. Abnormal soft tissue is present in the distal antrum adjacent to the right main bronchus. The left lung is clear. There is no pericardial effusion and moderate ascites is present. Laboratory studies revealed a white blood cell count of 8.6, a hemoglobin of 14.2, platelet count of 270,000 with a normal differential. Chemistry studies reveal a sodium of 125, potassium 4.5, chloride of 95, bicarb of 18.6, creatinine 0.93, EGFR 81, glucose of 151, calcium 8.3, total bili of 0.4, AST 25, ALT 20, alk phos is 91, total protein 5.9 and albumin is 2.6. Sodium from admission was 122, potassium from the admission was six. PAST MEDICAL HISTORY 1. COPD 2. Hypertension 3. Hyperlipidemia. PAST SURGICAL HISTORY Left inguinal hernia repair. SOCIAL HISTORY The patient lives in [place] with his girlfriend. He has family up [place]. He smokes, consumes alcohol and denies illegal drug use. He is a disabled . He was previously in the [employer]. ALLERGIES No known drug allergies. FAMILY HISTORY He reports a family history of malignancy in his mother, father and brother. REVIEW OF SYSTEMS 12 point review of systems conducted GENERAL: The patient feels fatigued GI: The patient has nausea, vomiting and decreased appetite. RESPIRATORY: Shortness of breath. All other review of systems negative. PHYSICAL EXAMINATION GENERAL: Elderly man in no distress. EYES: Pupils equal, round and reactive. Sclerae without icterus. ENT: Nasal cannula in place. NECK: Supple with no palpable lymphadenopathy. CHEST: Clear to auscultation bilaterally. CARDIAC: Regular rate and rhythm with no murmurs. ABDOMEN: Soft, nontender, nondistended with bowel sounds present. EXTREMITIES: No edema. NEUROLOGIC: Nonfocal. PSYCHIATRIC: Appropriate mood and affect. ASSESSMENT/PLAN 1. Right upper lobe lung mass highly suspicious for malignancy. Pulmonary team has been consulted and once other conditions stabilize, we will plan for procedure to obtain tissue diagnosis. 2. Hyponatremia, highly suspicious for SIADH related to underlying lung malignancy. We will continue to follow workup. We will continue to follow along. We will await the results of biopsy. MD CASEY Lange/ /5:59 PM /7:08 PM SALTY
--- NOTE | 2017-01-04 19:41 | RADRPT ---
EXAM DATE/TIME: 01/04/2017 19:19 [facility] COMPARISON: CT ABDOMEN & PELVIS W CONTRAST, October 30, 2014, 18:20. INDICATIONS : Abdominal pain, evaluate for metastases. IV CONTRAST: 94 cc Omnipaque 350 (iohexol) IV ORAL CONTRAST: Prescribed oral contrast ingested. RADIATION DOSE: 15.53 CTDIvol (mGy) MEDICAL HISTORY : Hypertension. SURGICAL HISTORY : None. ENCOUNTER: Initial ACUITY: 1 day PAIN SCALE: 3/10 LOCATION: medial abdomen TECHNIQUE: Volumetric scanning of the abdomen and pelvis was performed. Using automated exposure control and ad justment of the mA and/or kV according to patient size, radiation dose was kept as low as reasonably achievable to obtain optimal diagnostic quality images. DICOM format image data is available electro nically for review and comparison. FINDINGS: No pleural or pericardial effusions. There is diffuse fatty infiltration of the liver. There are innumerable subcentimeter hypodense lesions throughout the liver, new from previous study. The large st is in the inferior right lobe measuring 2.2 cm. There is soft tissue strandy density of the greate r omentum characteristic of carcinomatosis. Bilateral fat containing inguinal hernias are noted. Ther e is ascites present. Prostate demonstrates a central calcification measuring 6.5 mm. There are no si gns of bowel obstruction. Large amount of ascites is present. Cholelithiasis is noted. The spleen, ad renals, are unremarkable. Tiny bilateral renal cysts. There is atherosclerotic calcification of the a brian and iliac vessels identified. There is a small hiatal hernia. There is no adenopathy. At the lev el of the tail of the pancreas, a hypodense mass is identified measuring 4.3 x 3.8 cm in AP and trans verse dimension. Lung bases are clear. Osseous structures demonstrate degenerative changes of the spi ne. CONCLUSION: 1. 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 2. Bilateral fat containing inguinal hernias. 3. Ascites. 4. Cholelithiasis. 5. Atherosclerosis. Manoj Beltrán MD on January 04, 2017 at 19:35 Board Certified Radiologist. This report was verified electronically.
[2017-01-04 20:56] LABS: BICARBONATE 20.3 MEQ/L (21.0-32.0); CALCIUM 7.8 MG/DL (8.5-10.1); CREATININE 0.96 MG/DL (0.60-1.30)
[2017-01-05 04:00] VITALS: BP 165/76; PULSE 104; RESP 22; TEMP 96.4; O2SAT 100
[2017-01-05] MEDS: PIPERACIL-TAZO 4.5 GM PREMIX 100 ML IV SCH ×2 (04:41)
[2017-01-05] MEDS: SODIUM CHLORIDE 0.9% FLUSH 10 ML FLUSH IV FLUSH PRN ×2 (04:44)
[2017-01-05] MEDS: methylPREDNISolone SOD SUCC 40 MG/1 ML VIAL IV PUSH SCH ×2 (05:02)
[2017-01-05 05:33] VITALS: O2SAT 98
[2017-01-05 07:08] LABS: HEMATOCRIT 38.1 % (39.0-51.0); HEMOGLOBIN 13.1 GM/DL (13.0-17.0); MEAN CELL VOLUME 94.7 FL (80.0-100.0); MEAN CORPUSCULAR HEMOGLOBIN 32.5 PG (27.0-34.0); MEAN CORPUSCULAR HGB CONC 34.3 % (32.0-36.0); PLATELET COUNT 255 TH/MM3 (150-450); RED BLOOD COUNT 4.02 MIL/MM3 (4.50-5.90); RED CELL DISTRIBUTION WIDTH 15.5 % (11.6-17.2); WHITE BLOOD COUNT 9.7 TH/MM3 (4.0-11.0)
--- NOTE | 2017-01-05 08:57 | EKG ---
Date Performed: 01/03/2017 Time Performed: 10:54:56 PTAGE: 66 years EKG: ATRIAL FIBRILLATION WITH ABERRANT CONDUCTION OR VENTRICULAR PREMATURE COMPLEXES BORDERLINE RIGHT AXIS DEVIATION LOW QRS VOLTAGE Compared to prior tracing no significant change ABNORMAL ECG PREVIOUS TRACING : 10/31/2014 03.45 DOCTOR: Justus Gomez Interpretating Date/Time 01/05/2017 08:57:00
--- NOTE | 2017-01-05 09:52 | PD.AMA ---
Against Medical Advice Note Discharge Disposition: Against Medical Advice Pt Condition on Discharge: Guarded AMA Statement Patient Navarro Craig has decided to leave the hospital against medical advice. This patient has the capacity to refuse care and understands the risks of leaving, including permanent disability and/or , and has had an opportunity to ask questions about his condition. The patient has been informed that he may return for care at any time, and follow up has been arranged/ advised. He stated to the nurse that workup for his condition is being done over at the [facility] and he has no complaints or desires to stay here. We'll continue his medical care at the [facility] Nando Garcia MD, R3 Jan 05, 2017 09:52
--- NOTE | 2017-01-05 09:52 | PD.AMA ---
Against Medical Advice Note Discharge Disposition: Against Medical Advice Pt Condition on Discharge: Guarded AMA Statement Patient Navarro Craig has decided to leave the hospital against medical advice. This patient has the capacity to refuse care and understands the risks of leaving, including permanent disability and/or , and has had an opportunity to ask questions about his condition. The patient has been informed that he may return for care at any time, and follow up has been arranged/ advised. He stated to the nurse that workup for his condition is being done over at the [facility] and he has no complaints or desires to stay here. We'll continue his medical care at the [facility] Nando Garcia MD, R3 Jan 05, 2017 09:52
--- NOTE | 2017-01-05 09:52 | PD.AMA ---
Against Medical Advice Note Discharge Disposition: Against Medical Advice Pt Condition on Discharge: Guarded AMA Statement Patient Navarro Craig has decided to leave the hospital against medical advice. This patient has the capacity to refuse care and understands the risks of leaving, including permanent disability and/or , and has had an opportunity to ask questions about his condition. The patient has been informed that he may return for care at any time, and follow up has been arranged/ advised. He stated to the nurse that workup for his condition is being done over at the [facility] and he has no complaints or desires to stay here. We'll continue his medical care at the [facility] Nando Garcia MD, R3 Jan 05, 2017 09:52
== END 2017-01-05 07:54 | disposition left against medical advice (07) | DRG 871 ==
LOC: NEPE 10:18 → NEDA 13:14 → N06B 15:03
PROVIDERS: ADMIT Hospitalist; ATTEND Hospitalist
DX: A41.9 Sepsis, unspecified organism (principal); J18.9 Pneumonia, unspecified organism; R91.8 Other nonspecific abnormal finding of lung field; N17.9 Acute kidney failure, unspecified; R18.8 Other ascites; I95.9 Hypotension, unspecified; J44.0 Chronic obstructive pulmonary disease with (acute) lower respiratory infection; E87.1 Hypo-osmolality and hyponatremia; J44.1 Chronic obstructive pulmonary disease with (acute) exacerbation; R65.20 Severe sepsis without septic shock; E87.5 Hyperkalemia; E86.0 Dehydration; I10 Essential (primary) hypertension; H91.90 Unspecified hearing loss, unspecified ear; F17.200 Nicotine dependence, unspecified, uncomplicated; R11.2 Nausea with vomiting, unspecified; M19.90 Unspecified osteoarthritis, unspecified site; R19.7 Diarrhea, unspecified; F10.10 Alcohol abuse, uncomplicated; E78.5 Hyperlipidemia, unspecified; Z80.9 Family history of malignant neoplasm, unspecified
CPT/HCPCS: 71010; 71260; 74177; 80048; 80053; 80307; 81001; 82550; 83605; 84443; 85025; 85027; 87040; 93005; 94640; 94664; 96360; 96361; J1644; J2543; J2920; J7030; Q9963; Q9967